=== PATIENT | male | born 1970 | race Caucasian/White ===

== ENCOUNTER → 2023-12-12 12:31 | Outpatient (BNV) | payer OTHER, SELFPAY | PROVIDERS: Emergency Provider Emergency Medicine; Visit Provider Internal Medicine Cardiovascular Disease | DX: R07.9 Chest pain, unspecified (principal) | CPT/HCPCS: 93010 ==

== ENCOUNTER 2023-12-12 12:34 | Emergency (ER) | payer OTHER, SELFPAY ==
--- NOTE | 2023-12-12 | ECG_ITS ---
Test Reason : chest pain Blood Pressure : / mmHG Vent. Rate : 074 BPM Atrial Rate : 074 BPM P-R Int : 150 ms QRS Dur : 076 ms QT Int : 372 ms P-R-T Axes : 027 -12 009 degrees QTc Int : 412 ms Normal sinus rhythm Cannot rule out Inferior infarct , age undetermined Cannot rule out Anterior infarct , age undetermined Abnormal ECG No previous ECGs available Referred By: Generic ED Physician Electronically Signed By:DESIRE LUNDY MD
--- NOTE | ~2023-12-12 | XR_ITS ---
EXAMINATION: XR CHEST CLINICAL INFORMATION: Chest pain COMPARISON: None available. TECHNIQUE: Frontal view of the chest was obtained. FINDINGS: There is mild cardiac enlargement. No other significant abnormality is noted involving the lungs, mediastinum, bony thorax or soft tissues. Mild degenerative changes are present in the spine. XR/XR chest 1V IMPRESSION: Mild cardiomegaly. No acute intrathoracic disease. Electronically signed by: Eran Santos MD 12/12/2023 03:30 PM [facility]
[2023-12-12 12:48] LABS: MANUAL DIFF FLAG NO
[2023-12-12 12:50] LABS: Basophils Absolute Auto 0.1 X10*3/uL (0.0-0.2); Basophils Percent Auto 0.6 % (0-2); Eosinophils Absolute Auto 0.2 X10*3/uL (0.0-0.4); Eosinophils Percent Auto 1.9 % (0-4); Hematocrit 46.7 % (42.0-52.0); Hemoglobin 15.5 g/dl (14.0-18.0); Imm Gran Abs Auto 0.02 X10*3/uL (0.00-0.03); Imm Gran Pct Auto 0.3 % (0.0-0.4); Lymphocytes Absolute Auto 1.6 X10*3/uL (1.2-4.9); Lymphocytes Percent Auto 20.2 % (20-40); Mean Corpuscular HGB Conc 33.2 g/dl (31.0-36.0); Mean Corpuscular Hemoglobin 27.3 pg (27.0-33.0); Mean Corpuscular Volume 82.2 fL (80.0-98.0); Mean Platelet Volume 9.6 fL (9.4-12.4); Monocytes Absolute Auto 0.5 X10*3/uL (0.1-1.2); Monocytes Percent Auto 6.6 % (2-11); Neutrophils Absolute Auto 5.6 x10*3/uL (2.0-8.3); Neutrophils Percent Auto 70.4 % (45-73); Platelet Count 250 X10*3/uL (160-400); Red Blood Count 5.68 X10*6/uL (4.60-5.80); White Blood Count 7.9 X10*3/uL (4.8-10.8)
[2023-12-12 13:00] VITALS: BP 185/107; PULSE 77; RESP 20; TEMP 36.7; O2SAT 98; BMI 25.1
[2023-12-12 13:03] LABS: Anion Gap 13 (12-20); Blood Urea Nitrogen 11 mg/dL (9-16); Calcium 9.8 mg/dL (8.4-10.2); Carbon Dioxide 27 mmol/L (22-29); Chloride 105 mmol/L (96-108); Estimated Glomerular Filt Rate 58; Glucose Random 93 mg/dL (60-115); Sodium 141 mmol/L (135-145)
--- NOTE | 2023-12-12 13:05 | ED.CHESTPAIN ---
HPI - Chest Pain General Chief Complaint: Chest Pain Stated Complaint: chest pain Time Seen by Provider: 12/12/23 15:17 History of Present Illness ED Provider: Dr. Painter HPI narrative: 53 y/o M patient; PMH HTN, noncompliant with medication; presents from home reporting mid-chest non-radiating pain for the last 4 - 5 days. He states it has been constant since it started. He denies: nausea/vomiting, diaphoresis, abdominal pain. The patient states he stopped taking his blood pressure medication by choice several years ago. Related Data Previous Rx's ?Medication ?Instructions ?Recorded amlodipine 5 mg tablet 5 mg PO DAILY #30 tabs 12/12/23 Allergies Allergy/AdvReac Type Severity Reaction Status Date / Time No Known Allergies Allergy Verified 12/12/23 13:03 Review of Systems Review of Systems: Yes all other systems are reviewed and are negative Neurologic: Denies Abnormal speech present and Denies Sensory deficit (Neuro) [facility] Past Medical History Attestation statement: The following information was validated with the patient. Source: unable to obtain Social History Social History Advance Directives: No Advance Directives Information Provided: No Physical Exam Vital Signs: Vital Signs: Last Vital Signs Temp 98.1 F 12/12/23 17:21 Pulse 72 12/12/23 17:21 Resp 16 12/12/23 17:21 BP 185/111 H 12/12/23 17:21 Pulse Ox 98 12/12/23 17:21 O2 Del Method Room Air 12/12/23 17:21 BMI result Body Mass Index 25.1 Patient is afebrile and quite hypertensive. Const: General: cooperative Orientation/consciousness: patient oriented x3 HEENT: Head: Yes normal to inspection and Yes atraumatic Eyes: General: appearance normal, both eyes and all related structures Pupils: Equal, round and reactive pupils present EOM: EOMs intact bilaterally and No Nystagmus present Neck: Neck: Yes normal visual inspection, Yes full ROM and Yes supple Chest: Chest palpation & inspection: normal inspection of the chest and normal palpation of entire chest wall Resp: Effort & Inspection: normal respiratory effort, able to speak in complete sentences, no cough and no respiratory distress Auscultation: clear to auscultation bilaterally Cardio: Rate: regular rate Rhythm: regular rhythm Peripheral pulses: Peripheral pulses 2+ throughout GI: Inspection: Yes normal to inspection, No Abdominal wall edema and No distended Palpation (GI): Soft to palpation, not firm, nontender, no guarding and not rigid Auscultation: normal bowel sounds Back/Spine/Pelvis: Back: No back tenderness Neuro: General: patient oriented x3 and gait normal Cranial nerves: Yes Equal, round and reactive pupils present and No Nystagmus present Cognition (Neuro): normal cognition Speech: No Abnormal speech present Motor exam (neuro): 5/5 motor strength present throughout Sensory Exam: No Sensory deficit (Neuro) Coordination: [id number] test normal, Normal rapid alternating movements of the distal upper extremity present (Neuro) and Normal rapid alternating movements of the distal lower extremity present (Neuro) Course Course Course Narrative: RME: 53-year-old male history of high blood pressure was not taken his meds in 2 years presents to ED for headache and some chest pain. Patient denies any shortness of breath. Negative for any neuro deficits. NIH score is 0. Labs EKG ordered. Reevaluation(s) Reevaluation #1: Patient is afebrile, quite hypertensive. Labs reviewed. Negative troponin after several days of constant symptoms - unlikely ACS. Cr 1.29, unclear baseline. CXR with evidence of mild cardiomegaly. Discussed with patient that he will need to establish care with a PCP for follow up. The patient states when he moved from [place] to [place] he did not have a prescribing doctor so stopped taking his hypertension medication when the prescription ran out. He does not remember the name of the medication. I discussed starting the patient on a CCB with Amlodipine 5mg OD while he is pending a PCP to provide close monitoring. Patient is in agreement. Started on Amlodipine OD. Plan: Discharge to home with PCP follow up Return precautions given Medications Administered Discontinued Medications Generic Name Dose Route Start Last Admin Trade Name Freq PRN Reason Stop Dose Admin Amlodipine Besylate 5 mg 12/12/23 16:39 12/12/23 17:01 Amlodipine Besylate 5 Mg Tablet PO 12/12/23 16:40 5 mg ONCE ONE Administration Protocol Medical Decision Making Lab Data 12/12/23 12:42 12/12/23 12:42 Labs: Lab Results 12/12/23 Range/Units 12:42 WBC 7.9 (4.8-10.8) X10*3/uL RBC 5.68 (4.60-5.80) X10*6/uL Hgb 15.5 (14.0-18.0) g/dl Hct 46.7 (42.0-52.0) % MCV 82.2 (80.0-98.0) fL MCH 27.3 (27.0-33.0) pg MCHC 33.2 (31.0-36.0) g/dl RDW 13.0 (11.0-16.0) % Plt Count 250 (160-400) X10*3/uL MPV 9.6 (9.4-12.4) fL Immature Gran % (Auto) 0.3 (0.0-0.4) % Neut % (Auto) 70.4 (45-73) % Lymph % (Auto) 20.2 (20-40) % [place] % (Auto) 6.6 (2-11) % Eos % (Auto) 1.9 (0-4) % Baso % (Auto) 0.6 (0-2) % Lymph # (Auto) 1.6 (1.2-4.9) X10*3/uL [place] # (Auto) 0.5 (0.1-1.2) X10*3/uL Eos # (Auto) 0.2 (0.0-0.4) X10*3/uL Baso # (Auto) 0.1 (0.0-0.2) X10*3/uL Abs Immat Gran (auto) 0.02 (0.00-0.03) X10*3/uL Absolute Neuts (auto) 5.6 (2.0-8.3) x10*3/uL Absolute Nucleated RBC 0.000 (0.0-0.012) X10*3/uL Nucleated RBC % (auto) 0.0 (0.0-0.2) /100WBC Sodium 141 (135-145) mmol/L Potassium 4.0 (3.3-5.1) mmol/L Chloride 105 (96-108) mmol/L Carbon Dioxide 27 (22-29) mmol/L Anion Gap 13 (12-20) BUN 11 (9-16) mg/dL Creatinine 1.29 (0.5-1.4) mg/dL Estim Creat Clear Calc TNP Estimated GFR 58 Random Glucose 93 (60-115) mg/dL Calcium 9.8 (8.4-10.2) mg/dL Troponin I High Sens < 2.7 (<3.5-35.0) ng/L B-Natriuretic Peptide 24 (<100) pg/mL Independent Interpretation I performed an independent interpretation of an: EKG Interpretation: NSR 74BPM without ischemic changes, normal intervals Radiology Impression Discussion of test interpretation with radiology: I have reviewed the radiologist's reading. Radiologist Impression: EXAMINATION: XR CHEST CLINICAL INFORMATION: Chest pain COMPARISON: None available. TECHNIQUE: Frontal view of the chest was obtained. FINDINGS: There is mild cardiac enlargement. No other significant abnormality is noted involving the lungs, mediastinum, bony thorax or soft tissues. Mild degenerative changes are present in the spine. XR/XR chest 1V IMPRESSION: Mild cardiomegaly. No acute intrathoracic disease. Electronically signed by: Eran Santos MD 12/12/2023 03:30 PM [facility] Discharge Plan Discharge Clinical Impression: HTN (hypertension) Patient Disposition: Home, Self-Care Instructions: Hypertension (ED) Additional Instructions: As we discussed, you were seen today for hypertension. You will be started on a medication called Amlodipine - take this once a day. Please establish care with a primary doctor so they can work with your to titrate your blood pressure medication. Return to the emergency department for: Difficulty breathing Chest pain Passing out Prescriptions: New amlodipine 5 mg tablet 5 mg PO DAILY Qty: 30 0RF Interventions: ED Discharge Assessment Last Done: 12/12/23 17:21 Discharge Date/Time: 12/12/23 17:22 Print Language: Nam[place]ian
[2023-12-12 13:14] LABS: Troponin-I High Sensitivity < 2.7 ng/L (<3.5-35.0)
[2023-12-12 13:58] LABS: B Type Natriuretic Peptide 24 pg/mL (<100)
[2023-12-12 17:01] VITALS: BP 185/111
[2023-12-12] MEDS: amLODIPine Besylate 5 MG TABLET PO (17:01)
[2023-12-12 17:21] VITALS: BP 185/111; PULSE 72; RESP 16; TEMP 36.7; O2SAT 98
== END 2023-12-12 17:22 | disposition home or self-care (01) ==
PROVIDERS: Physician Assistant; Emergency Provider Emergency Medicine
DX: I10 Essential (primary) hypertension (principal); R07.9 Chest pain, unspecified; R51.9 Headache, unspecified
CPT/HCPCS: 36415; 71045; 80048; 83880; 84484; 85025; 93005; 99283

== ENCOUNTER 2023-12-15 14:06 | Emergency (ER) | payer OTHER, SELFPAY ==
--- NOTE | 2023-12-15 14:08 | ECG_ITS ---
Test Reason : cp Blood Pressure : / mmHG Vent. Rate : 092 BPM Atrial Rate : 092 BPM P-R Int : 154 ms QRS Dur : 078 ms QT Int : 344 ms P-R-T Axes : 049 -27 021 degrees QTc Int : 425 ms Normal sinus rhythm Possible Inferior infarct (cited on or before 12-DEC-2023) Anterior infarct (cited on or before 12-DEC-2023) Abnormal ECG When compared with ECG of 12-DEC-2023 12:31, Questionable change in initial forces of Inferior leads Referred By: Generic ED Physician Electronically Signed By:DESIRE LUNDY MD
--- NOTE | 2023-12-15 14:24 | ED_ITS ---
HPI - Chest Pain General Chief Complaint: Chest Pain Stated Complaint: Chest pain, high BP Time Seen by Provider: 12/15/23 17:11 Source: patient, RN notes reviewed and old records reviewed Mode of arrival: ambulatory Limitations: no limitations History of Present Illness ED Provider: Brenda AREVALO narrative: 53-year-old male with past medical history significant for hypertension presents for evaluation of ?chest pain and high blood pressure. Patient reports he has had intermittent chest pain for 1 week. He was seen here 3 days ago and found to be hypertensive. He was started on amlodipine 5 mg daily after having a negative workup He reports that his chest pain has persisted and his blood pressure was still elevated today. He currently does not have any chest pain but it kept him up all last night He denies any radiation of his pain. 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 He has a history of hypertension in up until a few days ago has not been on any antihypertensive medications for the last 2 years since moving from [place] Related Data Previous Rx's ?Medication ?Instructions ?Recorded amlodipine 5 mg tablet 5 mg PO DAILY #30 tabs 12/12/23 amlodipine 10 mg tablet 10 mg PO DAILY #30 tabs 12/15/23 Allergies Allergy/AdvReac Type Severity Reaction Status Date / Time No Known Allergies Allergy Verified 12/15/23 14:29 Review of Systems 2 Constitutional: Constitutional: Denies body ache(s), Denies chills, Denies fever(s) and Denies frequent falls Eyes: Eyes: Denies blurry vision ENT: Denies vertigo and Denies dizziness Cardiovascular: Cardiovascular: Reports chest pain and Denies dyspnea Respiratory: Respiratory: Denies cough and Denies dyspnea Gastrointestinal: Gastrointestinal: Denies abdominal pain, Denies nausea and Denies vomiting Musculoskeletal: Musculoskeletal: Denies back pain Integumentary/Breasts: Skin/Breast: Denies rash Neurologic: Denies vertigo, Denies dizziness and Denies frequent falls Psychiatric: Psychiatric: Denies anxiety [facility] Social History Social History Alcohol intake: former Smoked in Last 30 Days: No Use of substances other than those prescribed or required for medical reasons: No Advance Directives: No Advance Directives Information Provided: Yes Physical Exam 2 Vital Signs: Vital Signs: Last Vital Signs Temp 98.6 F 12/15/23 18:31 Pulse 80 12/15/23 18:31 Resp 18 12/15/23 18:31 BP 172/102 H 12/15/23 18:31 Pulse Ox 99 12/15/23 18:31 O2 Del Method Room Air 12/15/23 18:31 BMI result Body Mass Index 24.7 Const: General: healthy appearing, comfortable, no acute distress, alert and awake Nutritional Appearance: well nourished Orientation/consciousness: p atient oriented x3 HEENT: Head: Yes normocephalic and Yes atraumatic Eyes: Eyelids: Yes eyelids normal Conjunctivae: conjunctivae normal S clerae: sclerae normal Corneas: corneas normal Pupils: Equal, round and reactive pupils present EOM: EOMs intact bilaterally Neck: Neck: Yes full ROM Resp: Effort & Inspection: normal respiratory effort, able to speak in complete sentences, no audible wheezes and not labored Auscultation: clear to auscultation bilaterally Cardio: Rate: regular rate Rhythm: regular rhythm GI: Inspection: No distended Palpation (GI): Soft to palpation, not firm, nontender, no guarding and not rigid Skin: General skin exam: elasticity normal Neuro: General: patient oriented x3 Cranial nerves: Yes Equal, round and reactive pupils present and Yes Bilaterally intact EOM present Cognition (Neuro): normal cognition Course Course Course Narrative: This is an RME: Additional HPI, ROS, PE not included below will be deferred to primary provider. RME assessment and note performed by: Barbie Salgado PA-C This is a 53-year-old male who presents to the ER with a complaint of chest pain x 1 week. Reports that the chest pain comes and goes, but states that he was awake all night due to chest pressure. Seen here on 12/11 for same, started on amlodipine 5mg which he has been taking but states that he has not had any relief. Flew to [place] and [place] over the last few weeks. Blood pressure was 177/113 at home, currently 174/107 in triage. Reporting a 08/16 chest pain Plan: Labs, further ER eval needed. Medical Decision Making Medical Decision Making [facility] Narrative: 53-year-old male with a history of hypertension presents for evaluation of intermittent chest pain. He is currently asymptomatic. I reviewed his workup from 3 days ago including labs, EKG and chest x-ray. The patient's workup today is again unremarkable. I did add a D-dimer which was negative, this rules the patient out for PE. His troponin is again negative any rules out for ACS, his EKG is unchanged. I do not see any indication to repeat chest x-ray that was done 3 days ago. The patient's lung sounds are clear and he has no respiratory symptoms His chest pain may be related to his stress. His blood pressure remains elevated to 174 over 107. We will have the patient increase his amlodipine to 10 mg daily and he was given a list of primary doctors to follow up with Differential Diagnosis Differential Diagnoses: The differential diagnosis associated with the presentation includes Chest pain Hypertension ACS less likely PE Pneumonia Lab Data [facility] Lab Attestation statement: I reviewed the patient's lab results. No leukocytosis or anemia. Normal platelet count. No electrolyte abnormalities. Troponin negative, D-dimer negative 12/15/23 15:26 12/15/23 15:25 Labs: Lab Results 12/15/23 12/15/23 Range/Units 15:25 15:26 WBC 8.1 (4.8-10.8) X10*3/uL RBC 5.70 (4.60-5.80) X10*6/uL Hgb 15.8 (14.0-18.0) g/dl Hct 46.4 (42.0-52.0) % MCV 81.4 (80.0-98.0) fL MCH 27.7 (27.0-33.0) pg MCHC 34.1 (31.0-36.0) g/dl RDW 13.1 (11.0-16.0) % Plt Count 244 (160-400) X10*3/uL MPV 9.4 (9.4-12.4) fL Immature Gran % (Auto) 0.4 (0.0-0.4) % Neut % (Auto) 71.6 (45-73) % Lymph % (Auto) 19.7 L (20-40) % [place] % (Auto) 6.2 (2-11) % Eos % (Auto) 1.4 (0-4) % Baso % (Auto) 0.7 (0-2) % Lymph # (Auto) 1.6 (1.2-4.9) X10*3/uL [place] # (Auto) 0.5 (0.1-1.2) X10*3/uL Eos # (Auto) 0.1 (0.0-0.4) X10*3/uL Baso # (Auto) 0.1 (0.0-0.2) X10*3/uL Abs Immat Gran (auto) 0.03 (0.00-0.03) X10*3/uL Absolute Neuts (auto) 5.8 (2.0-8.3) x10*3/uL Absolute Nucleated RBC 0.000 (0.0-0.012) X10*3/uL Nucleated RBC % (auto) 0.0 (0.0-0.2) /100WBC PT 11.4 (10.9-12.4) SEC INR 1.0 (0.9-1.1) D-Dimer High Sensitivty < 150 NG/ML Sodium 143 (135-145) mmol/L Potassium 4.1 (3.3-5.1) mmol/L Chloride 105 (96-108) mmol/L Carbon Dioxide 29 (22-29) mmol/L Anion Gap 13 (12-20) BUN 15 (9-16) mg/dL Creatinine 1.36 (0.5-1.4) mg/dL Estim Creat Clear Calc 68.9 Estimated GFR 55 Random Glucose 85 (60-115) mg/dL Calcium 10.2 (8.4-10.2) mg/dL Magnesium 2.1 (1.6-2.6) mg/dL Total Bilirubin 0.3 (0.0-1.0) mg/dL Direct Bilirubin 0.1 (0.0-0.5) mg/dL AST 33 (5-37) U/L ALT 41 H (0-40) U/L Alkaline Phosphatase 82 (39-117) U/L Troponin I High Sens < 2.7 (<3.5-35.0) ng/L Total Protein 7.4 (6.5-8.0) g/dL Albumin 4.5 (3.5-5.0) g/dL Influenza Type A (PCR) NEGATIVE (Negative) Influenza Type B (PCR) NEGATIVE (Negative) RSV RNA Qual (PCR) NEGATIVE (Negative) SARS-CoV-2 RNA (RT-PCR) NEGATIVE (Negative) Independent Interpretation I performed an independent interpretation of an: EKG Interpretation: Normal sinus rhythm with a rate of 92 beats minute. No significant change when compared to previous from 3 days ago Discharge Plan Discharge Clinical Impression: Hypertension Patient Disposition: Home, Self-Care Instructions: Hypertension (ED) Additional Instructions: Your workup in the ER today was reassuring. Your blood pressure is still elevated though improved from a few days ago. You may increase your amlodipine to 10 mg daily Follow-up with a primary doctor from the list provided, return for new or worsening symptoms Prescriptions: New amlodipine 10 mg tablet 10 mg PO DAILY Qty: 30 0RF No Action amlodipine 5 mg tablet 5 mg PO DAILY Qty: 30 0RF Interventions: ED Discharge Assessment Last Done: 12/15/23 18:31 Print Language: Stateless
[2023-12-15 14:25] VITALS: BP 174/107; PULSE 93; RESP 16; TEMP 37; O2SAT 97; BMI 24.7
[2023-12-15 15:31] LABS: MANUAL DIFF FLAG NO
[2023-12-15 15:33] LABS: Basophils Absolute Auto 0.1 X10*3/uL (0.0-0.2); Basophils Percent Auto 0.7 % (0-2); Eosinophils Absolute Auto 0.1 X10*3/uL (0.0-0.4); Eosinophils Percent Auto 1.4 % (0-4); Hematocrit 46.4 % (42.0-52.0); Hemoglobin 15.8 g/dl (14.0-18.0); Imm Gran Abs Auto 0.03 X10*3/uL (0.00-0.03); Imm Gran Pct Auto 0.4 % (0.0-0.4); Lymphocytes Absolute Auto 1.6 X10*3/uL (1.2-4.9); Lymphocytes Percent Auto 19.7 % (20-40); Mean Corpuscular HGB Conc 34.1 g/dl (31.0-36.0); Mean Corpuscular Hemoglobin 27.7 pg (27.0-33.0); Mean Corpuscular Volume 81.4 fL (80.0-98.0); Mean Platelet Volume 9.4 fL (9.4-12.4); Monocytes Absolute Auto 0.5 X10*3/uL (0.1-1.2); Monocytes Percent Auto 6.2 % (2-11); Neutrophils Absolute Auto 5.8 x10*3/uL (2.0-8.3); Neutrophils Percent Auto 71.6 % (45-73); Platelet Count 244 X10*3/uL (160-400); Red Cell Distribution Width 13.1 % (11.0-16.0); White Blood Count 8.1 X10*3/uL (4.8-10.8)
[2023-12-15 15:39] LABS: Prothrombin Time 11.4 SEC (10.9-12.4)
[2023-12-15 16:05] LABS: Alanine Aminotransferase 41 U/L (0-40); Albumin Level 4.5 g/dL (3.5-5.0); Alkaline Phosphatase 82 U/L (39-117); Anion Gap 13 (12-20); Aspartate Amino Transferase 33 U/L (5-37); Bilirubin Direct 0.1 mg/dL (0.0-0.5); Bilirubin Total 0.3 mg/dL (0.0-1.0); Blood Urea Nitrogen 15 mg/dL (9-16); Calcium 10.2 mg/dL (8.4-10.2); Carbon Dioxide 29 mmol/L (22-29); Chloride 105 mmol/L (96-108); Creatinine Clr Calc Pharmacy 68.9; Estimated Glomerular Filt Rate 55; Glucose Random 85 mg/dL (60-115); Magnesium 2.1 mg/dL (1.6-2.6); Potassium 4.1 mmol/L (3.3-5.1); Sodium 143 mmol/L (135-145); Total Protein 7.4 g/dL (6.5-8.0)
[2023-12-15 16:10] LABS: Influenza A PCR NEGATIVE (Negative); Influenza B PCR NEGATIVE (Negative); Resp Syncy Virus RNA Qual PCR NEGATIVE (Negative); SARS COV2 PCR INHOUSE NEGATIVE (Negative)
[2023-12-15 16:13] LABS: Troponin-I High Sensitivity < 2.7 ng/L (<3.5-35.0)
[2023-12-15 17:48] VITALS: BP 172/102; PULSE 80; RESP 18; O2SAT 99
[2023-12-15 18:05] LABS: D Dimer High Sensitivity < 150 NG/ML
[2023-12-15 18:31] VITALS: BP 172/102; PULSE 80; RESP 18; TEMP 37; O2SAT 99
== END 2023-12-15 18:38 | disposition home or self-care (01) ==
PROVIDERS: Physician Assistant; Physician Assistant Medical; Emergency Provider Internal Medicine
DX: R07.89 Other chest pain (principal); I10 Essential (primary) hypertension; Z03.818 Encounter for observation for suspected exposure to other biological agents ruled out; Z79.899 Other long term (current) drug therapy
CPT/HCPCS: 0241U; 80048; 80076; 83735; 84484; 85025; 85379; 85610; 93005; 99283; 99284

== ENCOUNTER → 2023-12-15 14:08 | Outpatient (BNV) | payer OTHER, SELFPAY | PROVIDERS: Emergency Provider Internal Medicine; Visit Provider Internal Medicine Cardiovascular Disease | DX: R07.9 Chest pain, unspecified (principal) | CPT/HCPCS: 93010 ==